=== PATIENT | male | born 1995 | race Hispanic/Latino ===

== ENCOUNTER → 2016-09-21 | Outpatient (CLI) | payer OTHER | LOC: M RAD 15:57 | PROVIDERS: ATTEND Physician Assistant | DX: R10.9 Unspecified abdominal pain (principal) ==

== ENCOUNTER → 2017-05-04 | Outpatient (CLI) | payer OTHER ==
[~2017-05-04] MED LIST: BUPR150T3 PO; CETI10TA PO; GASTROGRAFIN SOLUTION 30ML (Q9963) As Ordered ONE; PRED20TA PO; TRIA25CR TOP
== END ==
LOC: M RAD 15:48
PROVIDERS: ATTEND Physician Assistant
DX: R10.9 Unspecified abdominal pain (principal); Z53.9 Procedure and treatment not carried out, unspecified reason

== ENCOUNTER → 2017-05-11 | Outpatient (CLI) | payer OTHER ==
[~2017-05-11] MED LIST changes: +ISOVUE-370 76% 100ML VIAL (Q9967) As Ordered ONE
--- NOTE | 2017-05-11 18:40 | REP ---
CT abdomen and pelvis without IV, but with oral contrast: History: Abdominal pain. Abdominal hernia. Right inguinal pain. CT findings: The lung bases are clear. The bowel gas pattern is unremarkable. The liver and spleen are normal in size and homogeneous in texture. No adrenal lesion is seen on either side. The gallbladder and pancreas are unremarkable. Small and large intestinal bowel loops are normal in the upper abdomen. The kidneys are morphologically intact. A normal appendix is seen posterior to the cecum. There is no evidence of inguinal or other abdominal wall hernia. Seminal vesicles, prostate, and urinary bladder are unremarkable. Small and large bowel loops are unremarkable in the pelvis and abdomen. No peroneal abnormality or intrascrotal abnormality is seen. Bone window settings show no bony destructive lesion. Impression: Negative CT study of the abdomen, pelvis and perineum without IV contrast, but with oral contrast. Signed by Victor Manuel Carmichael MD 05/12/2017 08:34 A
== END ==
LOC: M RAD 16:13
PROVIDERS: ATTEND Physician Assistant
DX: R10.30 Lower abdominal pain, unspecified (principal)
CPT/HCPCS: 74176; Q9963

== ENCOUNTER 2017-06-29 11:42 | Inpatient (IN) | payer OTHER ==
[~2017-06-29] VITALS: Ht 177.8 cm; Wt 80.0 kg
[2017-06-29] MEDS ORDERED: BUPR150T3 PO (12:00)
[2017-06-29 13:35] LABS: MEAN CORPUSCULAR HEMOGLOBIN 29.1 pg (27.0-33.0); MEAN CORPUSCULAR HGB CONC 33.9 g/dl (32.0-36.5); MEAN CORPUSCULAR VOLUME 85.9 fl (80.0-96.0); WHITE BLOOD COUNT 6.2 10^3/uL (4.0-10.0)
[2017-06-29 14:21] LABS: METHADONE URINE NEGATIVE (NEGATIVE)
[2017-06-29 14:32] LABS: ALBUMIN 4.2 GM/DL (3.2-5.2); ALBUMIN/GLOBULIN RATIO 1.17 (1.00-1.93); ALKALINE PHOSPHATASE 69 U/L (45-117); ALT/SGPT 22 U/L (12-78); ANION GAP 6 MEQ/L (8-16); AST/SGOT 13 U/L (15-37); BILIRUBIN,DIRECT 0.1 MG/DL (0.0-0.2); BILIRUBIN,TOTAL 0.4 MG/DL (0.2-1.0); BLOOD UREA NITROGEN 16 MG/DL (7-18); CALCIUM LEVEL 9.1 MG/DL (8.5-10.1); CARBON DIOXIDE LEVEL 30 MEQ/L (21-32); CHLORIDE LEVEL 104 MEQ/L (98-107); GLOMERULAR FILTRATION RATE > 60.0 (>60); GLUCOSE, FASTING 87 MG/DL (70-105); POTASSIUM SERUM 3.6 MEQ/L (3.5-5.1); SODIUM LEVEL 140 MEQ/L (136-145); TOTAL PROTEIN 7.8 GM/DL (6.4-8.2)
[2017-06-29] MEDS ORDERED: LORazepam 1 MG TAB PO PRN (16:00)
[2017-06-29] MEDS ORDERED: MAALOX 30 ML SUSP *UDC PO PRN (16:00)
[2017-06-29] MEDS ORDERED: ACETAMINOPHEN TAB 650MG DOSE (2X325MG) PO PRN (16:00)
[2017-06-29] MEDS ORDERED: traZODone 50 MG TAB PO PRN (16:00)
[2017-06-29] MEDS ORDERED: MOM 30ML SUSPENSION UDC PO PRN (16:00)
[2017-06-29] MEDS ORDERED: OLANZapine 5 MG TAB PO PRN (16:15)
[2017-06-29 17:11] VITALS: BP 154/76
[2017-06-30 07:06] VITALS: BP 124/59
--- NOTE | 2017-06-30 09:07 | HPEPDOC ---
[facility] Medical History & Physical Date of Admission Jun 29, 2017 History and Physical PCP: [facility] ATTENDING: Dr. Saturnino Hodge HPI: 21 yo M admitted to [facility] for unspecified mood disorder, being medically examined today. Patient states he is following with his PCP for epididymal cysts. He has been referred to urologist, appointment is pending. He denies any pain. No urinary complaints. No abdominal pain. Denies any fevers, chills, weakness, fatigue, ANAYA, CP, SOB, cough, palpitations, N/V/D or changes in bowel or bladder habits. PMHx: left epididymal cyst History of anger and concentration issues PSHX: Denies SOCHX: Resides in: [facility] Marital Status: Kids: None Employment: Active duty Tobacco use: Denies ETOH: 2-3 drinks per month Illicit Drugs: Denies IV Drug Use: Denies Tattoos done unprofessionally: Denies FAMHX: Mother: Alive, well Father: Alive, well Siblings: Alive, well Children: None Unexpected deaths due to medical reasons: None. ROS: As noted in HPI, otherwise 11pt ROS of systems reviewed and unremarkable. PE: GEN: 21 yo M, appears stated age. Well-nourished, well developed. No acute distress. Alert and oriented x 3. Pleasant, interactive. HEENT: Normocephalic, atraumatic. Pupils are equal, round, and reactive to light. Extraocular movements are intact. No nystagmus appreciated. Sclera are nonicteric. Conjunctiva without injection. Nose midline. Nasal turbinates without bogginess. EACs both patent BL. TMs both visualized and mike with good cone of light, no bulging or erythema. No facial asymmetry. Moist mucous membranes. Dentition fair. Pharynx pink and moist, no cobblestoning. Neck supple , trachea midline. No lymphadenopathy or thyromegaly appreciated. CHEST: Regular rate and rhythm, +S1, +S2 LUNGS: Clear to auscultation bilaterally. No wheezes, rales, or rhonchi. Breathing appears symmetric and easy. Patient is speaking in full sentences. No accessory muscle use. ABD: Round, soft, non-tender, non-distended. +Bowel sounds throughout. No rebound or guarding. No costovertebral angle tenderness. EXT: Pulses 2+ bilaterally dorsalis pedis and radial. No lower extremity edema appreciated. SKIN: [place], dry, warm. Capillary refill <2sec. No rashes. NEURO: Alert and oriented x 3. Cranial nerves III-XII are intact. No focal deficits appreciated. EKG: pending Scrotal U/S 07/03 The right testicle measures 55 x 22 x 33 mm, the left testicle measures 51 x 6 21 x 34 mm. Both testicles are of normal homogeneous echogenicity. Both testicles demonstrate normal color Doppler flow. There is a left epididymal cyst measuring 5.6 x 6 x 1 x 7.8 mm. Overall the left epididymis measures approximately 10.7 mm in diameter. The right epididymis measures 7.5 mm. The right testicle is reported to have a resistive index of 0.70, the left testicle resistive index 0.53. Impression: Left epididymal cyst. No testicular torsion. CT A/P 05/11/17 The lung bases are clear. The bowel gas pattern is unremarkable. The liver and spleen are normal in size and homogeneous in texture. No adrenal lesion is seen on either side. The gallbladder and pancreas are unremarkable. Small and large intestinal bowel loops are normal in the upper abdomen. The kidneys are morphologically intact. A normal appendix is seen posterior to the cecum. There is no evidence of inguinal or other abdominal wall hernia. Seminal vesicles, prostate, and urinary bladder are unremarkable. Small and large bowel loops are unremarkable in the pelvis and abdomen. No peroneal abnormality or intrascrotal abnormality is seen. Bone window settings show no bony destructive lesion. A&P: 21 yo M admitted to [facility] for unspecified mood disorder 1. Psych. Plan per Psychiatry. Obtain baseline EKG to assure the safety of psychiatric medications as they can prolong the QT interval. 2. History of epididymal cyst. Continue follow-up with PCP. Patient has been referred to urologist. Appointment is pending. Continue outpatient management. 3. Follow up with PCP on discharge. 4. Staff member Nimesh present throughout exam. Vital Signs Vital Signs Date Time Temp Pulse Resp B/P (MAP) Pulse Ox O2 Delivery O2 Flow Rate FiO2 06/30/17 07:06 97.4 64 18 124/59 (80) 06/29/17 17:11 100 Room Air Laboratory Data Labs 24H Laboratory Tests 2 06/29/17 13:21: Nucleated Red Blood Cells % (auto) 0.0, Anion Gap 6L, Glomerular Filtration Rate > 60.0, Calcium Level 9.1, Aspartate Amino Transf (AST/SGOT) 13L, Alanine Aminotransferase (ALT/SGPT) 22, Alkaline Phosphatase 69, Total Bilirubin 0.4, Direct Bilirubin 0.1, Total Protein 7.8, Albumin 4.2, Albumin/Globulin Ratio 1.17, Thyroid Stimulating Hormone (TSH) 3.020, Salicylates Level < 1.7L, Urine Amphetamines Screen NEGATIVE, Urine Benzodiazepines Screen NEGATIVE, Urine Opiates Screen NEGATIVE, Urine Methadone Screen NEGATIVE, Acetaminophen Level < 2.0L, Urine Barbiturates Screen NEGATIVE, Urine Phencyclidine Screen NEGATIVE, Urine Cocaine Metabolite Screen NEGATIVE, Urine Cannabinoids Screen NEGATIVE, Ethyl Alcohol Level < 0.003 CBC/BMP Laboratory Tests 06/29/17 13:21 Red Blood Count 4.95, Mean Corpuscular Volume 85.9, Mean Corpuscular Hemoglobin 29.1, Mean Corpuscular Hemoglobin Concent 33.9, Red Cell Distribution Width 12.0 Home Medications Scheduled Bupropion Hcl (Bupropion HCl Xl) 150 Mg Tab, 150 MG PO DAILY Allergies Coded Allergies: No Known Allergies (Unverified , 06/29/17) Lisa Granda Jun 30, 2017 09:07
--- NOTE | 2017-06-30 13:11 | MHHPEPDOC ---
[facility] History & Physical History and Physical DATE OF ADMISSION: Jun 29, 2017 at 15:49 LEGAL STATUS AT ADMISSION: 9:39 Emergency Legal status CHIEF COMPLAINT: . Patient was brought to the hospital after reportedly was walking in front of a moving truck suspected intentions to harm himself HISTORY OF THE PRESENT ILLNESS: Patient is a 21-year-old male, with history of depression/concentration problems that was brought to the hospital after he was found walking in front of a moving truck as suspected to hurt himself. Patient reported that finished his shift yesterday morning , around 3-4 am, and was walking home when he realized after her girlfriend called him that he was walking in front of a moving car. Patient reports that was sleepy. His sleeping patterns have changed for the last several months as he has different SHIFTS. Patient denied any intentions of self-harm denied any depressive symptoms. However, his current stressor is having a right inguinal hernia that has been untreated for several work shifts and his worsening inguinal hernia is causing worsening pain and has affected his relationship with his girlfriend as he is unable to have a normal sexual life . As reported and documented by testicular ultrasound , he has a left spermatozoid epididymal cyst that doesn't require any treatment. He denied any history or current manic or hypomanic symptoms. No psychosis. Denied alcohol or illicit drug use. He currently lives with his girlfriend and has a in [place] that is getting from in a mutual agreement. PSYCHIATRIC REVIEW OF SYSTEMS: Affective: . Depressed mood that is triggered by worsening right side hernia Anxiety: . Denied Trauma: . Denied Psychosis: . Denied Personally: . None PAST PSYCHIATRIC HISTORY: Prior Psychiatric Disorder: . Has been treated for depression/concentration problems with Wellbutrin OUTPATIENT TREATMENT: . [place] Suicidal/Self injurious: . Reports that he had a suicidal gesture at age 12 Psychotropic Medication History: . None ALLERGIES: Please see below. FAMILY PSYCHIATRIC HISTORY: . Reported mother suffer from depression SOCIAL HISTORY: 21 years old male that is from [facility]. Patient has been in the for the last 2.5 years. He has a in [place] and currently from her. He lives with a girlfriend of several months. He lives with his girlfriend outside of the base. Denied history of trauma when growing up. Completed H.S before enrolling in the . SUBSTANCE ABUSE HISTORY: . Denied PAST MEDICAL/SURGICAL HISTORY: 1. . Chronic inguinal hernia that has been over looked and not treated in the base for the last 2-3 years. The pain and inflammation has been worsening. He is not able to do physical activity as his best performance and is affecting his sexual life 2. . Has documented last testicular epididymal cyst that doesn't require any treatment or follow-up VITAL SIGNS: Temperature , pulse , respiratory rate , blood pressure , pulse oximetry % on room air. MENTAL STATUS EXAMINATION: General appearance: Patient is a 21-year old male, looks stated age, fair grooming and hygiene, cooperative, pleasant Speech: . Fluent and coherent Thought processes: . Linear and goal directed Thought content: . Denies suicidal, homicidal ideas. No delusions elicited. No perceptual disturbances Abstract reasoning and computation: . Intact Description of associations: . Normal Description of abnormal or psychotic thoughts: . No symptoms of psychosis Judgment: . Fair Insight: . Fair Orientation: . Oriented 3 Recent and remote memory: . Intact Attention span and concentration: . Intact Fund of knowledge: . Average Mood: "Okay." Affect: . full Range DIAGNOSES: 1. . Mood disorder NOS. Rule out adjustment disorder 2. . 3. . ASSESSMENT: None. 21 years old male that was admitted after he was found walking in front of a moving truck suspected had ideas to hurt himself. He currently denied any ideas or intentions to hurt himself report that was walking home after work and sleeping poorly. No symptoms of clinical depression. However, he has been taking Wellbutrin for depressed mood and reported for concentration. Patient has been complaining of right inguinal hernia that has affected his mood and other aspects of his life. He will continue taking Wellbutrin and surgery Attending consulted for possible inguinal hernia repair PROBLEM LIST: 1. . Chronic inguinal hernia 2. . Depressed mood 3. . Social stressors INITIAL TREATMENT PLAN: 1. Patient was admitted on an involuntary legal status 2. Complete history was obtained. 3. With patients permission, family will be contacted and database will be expanded. 4. Patients medication regimen will be reviewed and changed accordingly. 5. Patient will be provided with protected environment. 6. Patient will be treated with individual, group, and milieu therapies. 7. Patient will receive supportive psych-education. 8. Discharge planning will commence immediately. 9. Outpatient follow-up treatment will be strongly recommended. 10. The initial treatment plan will focus initially on: * mood symptoms ESTIMATED LENGTH OF STAY: 3-5 DAYS. TIME SPENT COUNSELING AND COORDINATING INITIAL CARE: 50 minutes. Laboratory Data 24H Labs Laboratory Tests 2 06/29/17 13:21: Nucleated Red Blood Cells % (auto) 0.0, Anion Gap 6L, Glomerular Filtration Rate > 60.0, Calcium Level 9.1, Aspartate Amino Transf (AST/SGOT) 13L, Alanine Aminotransferase (ALT/SGPT) 22, Alkaline Phosphatase 69, Total Bilirubin 0.4, Direct Bilirubin 0.1, Total Protein 7.8, Albumin 4.2, Albumin/Globulin Ratio 1.17, Thyroid Stimulating Hormone (TSH) 3.020, Salicylates Level < 1.7L, Urine Amphetamines Screen NEGATIVE, Urine Benzodiazepines Screen NEGATIVE, Urine Opiates Screen NEGATIVE, Urine Methadone Screen NEGATIVE, Acetaminophen Level < 2.0L, Urine Barbiturates Screen NEGATIVE, Urine Phencyclidine Screen NEGATIVE, Urine Cocaine Metabolite Screen NEGATIVE, Urine Cannabinoids Screen NEGATIVE, Ethyl Alcohol Level < 0.003 CBC/BMP Laboratory Tests 06/29/17 13:21 Red Blood Count 4.95, Mean Corpuscular Volume 85.9, Mean Corpuscular Hemoglobin 29.1, Mean Corpuscular Hemoglobin Concent 33.9, Red Cell Distribution Width 12.0 Medications Scheduled Bupropion Hcl (Bupropion HCl Xl) 150 Mg Tab, 150 MG PO DAILY, (Reported) Allergies Coded Allergies: No Known Allergies (Unverified , 06/29/17) JESSICA TAFOYA MD Jun 30, 2017 13:11
[2017-06-30] MEDS: buPROPion **XL** TABLET 150MG (WELLBUTRIN XL) PO SCH (14:59)
--- NOTE | 2017-06-30 15:08 | ECGEPIP ---
Stationary ECG Study [facility] Test Date: 2017-06-30 Pat Name: ARSENIO REID Department: Room: [place] [address] Gender: M Clinical Allergist: : 1995 Requested By: Lisa Granda Order Number: [id number] Reading MD: Isis Gee Measurements Intervals [place] Rate: 50 P: 53 MT: 156 QRS: 72 QRSD: 93 T: 62 QT: 399 QTc: 364 Interpretive Statements SINUS BRADYCARDIA SEPTAL EARLY REPOLAR CHANGES SUSPECTED NO PRIOR PROM VOLTAGE Electronically Signed On 06-30-2017 15:07:30 EDT by Isis Gee
[2017-06-30 18:00] VITALS: BP 156/83
[2017-07-01 06:59] VITALS: BP 136/63
[2017-07-01] MEDS: buPROPion **XL** TABLET 150MG (WELLBUTRIN XL) PO SCH (08:12)
[2017-07-01 18:00] VITALS: BP 135/68
--- NOTE | 2017-07-01 22:17 | MHIPN ---
DATE: 07/01/2017 SUBJECTIVE: The patient states he is doing good. He says he slept good. He has no complaints. MENTAL STATUS EXAMINATION: He is alert and oriented times three. Eye contact is fair. Psychomotor activity normal. There is no formal thought disorder noted. He says his mood is fine. Affect is full range and appropriate. He is not psychotic, suicidal, or homicidal. Concentration and memory are fair. Insight and judgment are fair. DIAGNOSIS: Unspecified mood disorder. TREATMENT PLAN: At this point we will continue to monitor the patient and we will continue stabilization of his mood and we will continue to monitor the patient for continued resolution of suicidal ideation. MANUEL
[2017-07-02 07:07] VITALS: BP 136/65
[2017-07-02] MEDS: buPROPion **XL** TABLET 150MG (WELLBUTRIN XL) PO SCH (08:31)
[2017-07-02 18:00] VITALS: BP 120/70
--- NOTE | 2017-07-02 19:17 | MHIPN ---
DATE: 07/02/2017 SUBJECTIVE: The patient today states that he is doing "fine." He said he slept good. He has no complaints. MENTAL STATUS EXAMINATION: He is alert and oriented times three. Eye contact is fairly good. Psychomotor activity is normal. He is verbally spontaneous. There is no formal thought disorder. He says his mood is good. Affect is constricted but appropriate to his mood. He is not psychotic. He denies suicidal or homicidal ideations. Concentration is fair. Memory intact. Insight and judgment is fair. DIAGNOSIS: Unspecified mood disorder. TREATMENT PLAN: At this point, the patient will continue to be monitored to make sure he is not having any self-harm thoughts. He continues to deny any depressive symptomatology. MANUEL
[2017-07-03 06:43] VITALS: BP 126/64
[2017-07-03] MEDS: buPROPion **XL** TABLET 150MG (WELLBUTRIN XL) PO SCH (08:44)
[2017-07-03 18:00] VITALS: BP 132/70
--- NOTE | 2017-07-03 19:11 | IPN ---
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 The patient has a history of depression and has been on bupropion 150 mg by mouth every morning. MEDICATIONS: - bupropion 150 mg by mouth every morning - olanzapine 5 mg by mouth every four hours as needed for anxiety and agitation - trazodone 50 mg by mouth at bedtime as needed for insomnia The patient is improving. The patient reports no side effects from the medication. The patient denies any suicidal or homicidal ideation during the interview. There is no evidence of psychotic symptoms. The patient reports that he was sleep deprived prior to admission and this is the rationale of his behavior prior to coming to the hospital. The patient says that he also was drinking a lot of coffee. The patient is interacting with other patients and staff normally. MENTAL STATUS EXAMINATION: The patient is dressed in [facility]. The patient is clean and well-groomed. The patient is calm and cooperative. The patient has fair eye contact. His speech is normal in rate, volume and articulation. He is coherent and is spontaneous. Mood is slightly anxious. Affect is congruent with mood. No evidence of delusions or hallucinations. Short and long-term memory are intact. The patient is fully oriented. Associations are intact. Thinking is logical. Thought content is appropriate. The patient is able to contract for safety during the interview. Insight and judgment is fair. ASSESSMENT: Adjustment disorder with depressed and anxious mood. PLAN: 1. Continue Wellbutrin XL 150 mg by mouth daily. 2. Continue trazodone 50 mg by mouth at bedtime as needed for insomnia. 3. Continue medication management, individual and group therapy.
[2017-07-04 06:50] VITALS: BP 116/62
[2017-07-04] MEDS: buPROPion **XL** TABLET 150MG (WELLBUTRIN XL) PO SCH (08:15)
--- NOTE | 2017-07-04 18:00 | MHDS ---
DATE OF ADMISSION: 06/29/2017 DATE OF DISCHARGE: 07/04/2017 LEGAL STATUS AT ADMISSION: 9.39 legal status. HISTORY OF PRESENT ILLNESS: The following information is according to the initial evaluation of Dr. Bosch, his progress note, and my own progress note. On June 29, Dr. Bosch wrote: The patient was brought to the hospital after reportedly walking in front of a moving truck, suspected intentions to harm himself. Patient is a 21-year-old male with history of depression, concentration problems, was brought to the hospital after he was found walking in front of a moving truck, suspected to hurt himself. Patient reported that he finished his shift yesterday morning around 3 a.m. He was walking home, when he realized after his girlfriend called him, that he was walking in front of a moving car. Patient reports that he was sleepy. His sleeping patterns have changed for the last several months, as he has a different shift. Patient denied any intentions to self-harm or any depressive symptoms; however, reported some stressors. He reported right inguinal hernia that has been untreated. He reports inguinal and worsening pain, and that this has affected his relationship with his girlfriend, as he is unable to have normal sexual life. He also has a left epididymal cyst that does not require any treatment. He denied history of manic or hypomanic symptoms. No psychosis. Denied alcohol or illicit drug use. He currently lives with his girlfriend and has a in [place] who is getting from a mutual agreement. LABORATORIES AT ADMISSION: His CBC was within normal limits. CMP was unremarkable. TSH within normal limits. Urine drug screen was negative. Blood alcohol level is negative. HOSPITAL COURSE: After the evaluation by Dr. Overton, he restarted the patient on Wellbutrin XL 150 mg by mouth daily, as he was taking before admission. Patient was also started on trazodone 50 mg by mouth at bedtime as needed for insomnia. He was observed in our unit. We could not observe any symptoms compatible with major depression. He continued to deny suicidal thoughts. I saw the patient on July 03 and July 04. The patient's hypothesis is that he has been sleep deprived, and this was the cause of the problems before admission. Observation in the unit showed that the patient is interacting normally with other patients and staff. He is able to smile. Has no psychomotor retardation. No evidence of psychotic symptoms. No evidence of auditory or visual hallucinations or delusions, and he continued to deny any suicidal thoughts; therefore, on July 04 patient is discharged in a stable condition. MENTAL STATUS EXAMINATION AT DISCHARGE: Patient is dressed in [facility]. Patient is calm and cooperative. His speech is clear, coherent with normal rate and is spontaneous. Patient has good eye contact. Mood is euthymic. Affect is appropriate and congruent with mood. Patient is oriented to time, place, and person, and situation. Maintains attention and concentration correctly. Instant recall and recent and remote memory are intact. Thought processes are coherent, logical, and goal directed. Patient does not have auditory or visual hallucinations. Patient does not have paranoid, persecutory, somatic, grandiose, or buddhism delusions. Patient denies suicidal or homicidal ideation. Judgment and insight are fair. DISCHARGE MEDICATIONS: Wellbutrin XL 150 mg by mouth daily DISCHARGE DIAGNOSES: AXIS I: Adjustment disorder with depressed and anxious mood. AXIS II: Deferred. AXIS III: None acute. CONDITION ON DISCHARGE: Stable. No suicidal or homicidal ideation. No auditory or visual hallucinations. No delusions. INSTRUCTIONS TO THE PATIENT: Patient is to continue taking his medication as prescribed and followup appointments. He is advised to maintain absolute sobriety from drugs and alcohol. Patient has scheduled appointment for medication management, individual psychotherapy, and primary care physician.
[2017-07-17] MEDS ORDERED: CETI10TA PO (02:01)
[2017-07-17] MEDS ORDERED: PRED20TA PO (02:01)
[2017-07-17] MEDS ORDERED: TRIA25CR TOP (02:01)
== END 2017-07-04 13:45 | disposition home or self-care (01) | DRG 882 ==
LOC: M ED 11:42 → M ED INP 15:49 → M PSY 16:56
PROVIDERS: ADMIT Psychiatry & Neurology Psychiatry; ATTEND Psychiatry & Neurology Psychiatry
DX: F43.23 Adjustment disorder with mixed anxiety and depressed mood (principal); L72.0 Epidermal cyst

== ENCOUNTER → 2017-08-18 | Outpatient (REF) | payer OTHER ==
[~2017-08-18] MED LIST changes: -GASTROGRAFIN SOLUTION 30ML (Q9963) As Ordered ONE; -ISOVUE-370 76% 100ML VIAL (Q9967) As Ordered ONE
== END ==
LOC: M SMT 13:04
PROVIDERS: ATTEND Nurse Practitioner Family
DX: N53.12 Painful ejaculation (principal); N50.811 Right testicular pain
CPT/HCPCS: 81001; 87086; G0463